=== PATIENT | female | born 1995 | race Caucasian/White ===

== ENCOUNTER 2016-09-08 01:45 | Inpatient (IN) | payer MEDICAID ==
--- NOTE | 2016-09-08 01:53 | OBADHP ---
Datetime: 08/16/2016 15:58 Presentation-Admit: Vertex FHR - Baseline A Provider: 130 Membranes, Provider: Intact Contraction Comments Provider: occasional Gestation - Est Wks by US: 35.0 NICHD Variability Prov Fetus A: Moderate 6-25bpm NICHD Accel Fetus A IP Provider: 15X15 FHR Category Provider Fetus A: Category I NICHD Decel Fetus A IP Provider: None Dilatation, Provider: 0 Effacement, Provider: 0 Station, Provider: -3 Datetime: 08/15/2016 20:06 Admit Comment, IP Provider: at 35+weeks came with c/o pt slipped from the stair at 6.20 pm and fell and hit her belly on right side. pt not feeling the baby moving that time, no vb, lof, no pain. obhx primi pmh denies med pnv all nkda osh den soch denies ve closed a/p at 35=weeks s/p fall admit for observation ivf labs ob sono cont cornelio and efm repeat labs in am cont obervation Pelvic Type - PN: Adequate Extremities - PN: Normal Abdomen - PN: Normal Back - PN: Normal Breast - PN: Normal Lungs - PN: Normal Heart - PN: Normal Thyroid - PN: Normal Neurologic - PN: Normal HEENT - PN: Normal General - PN: Normal Comments, ACOG Physical Exam: gravid,non tender ve closed no bruises IP Hx Assessment: The History has been Reviewed and is Current Vital Signs Provider: Reviewed; Within Normal Limits IP Chief Complaint: Trauma/Fall Genitourinary Exam: Normal DTRs - PN: Normal EGA AdmitDate IP: 35.6 IP Adm Impression: , intrauterine IP Admit Plan: Observation/Evaluation
[2016-09-08 02:32] VITALS: BMI 22.8
[2016-09-08] MEDS ORDERED: Lactated Ringer's 1,000 ML IV SCH (02:45)
--- NOTE | 2016-09-08 02:59 | OBHP ---
Datetime: 09/08/2016 02:45 IP Adm Impression: Term, intrauterine ; No Active Labor; Ruptured Membranes IP Adm Impression Other: Anemia; GBS unkown IP Admit Plan: Admit to unit; Initiate labor augmentation protocol Admit Comment, IP Provider: 21 yo LMO unsure, ESSENCE 09/13/16, EGA 39w 2d by sono 04/26/16 at 20 w eeks, c/o SROM 0100 hours and onset of contractions 0200 hours; pain scale now 7/10. (+) AFM; denies VB. care: 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 Denies STIs PMH: denies PSH: denies NKDA Meds: PNV and iron - each, QD Soc Hx: denies tobacco, illicit drug or EtOH use. Lives by herself. FOB involved; together. 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 Father alive 59 - hx not known. P.E.: as above. WD in pain with contractions/ crying. Awake, alert, oriented to time, person and p lace. Pleasant and cooperative. Mother present Assessment: 21 yo 39w 2d, PROM; latent phase of labor. Category 1 tracing. GBS unknown. Patient co unseled on pain management; will consider. Clinically stable. Plan: 1) Admit 2) NPO 3) IVFs 4) Admission and linited labs 5) Continuous EFM 6) Penicillin 7) Pitocin, as needed 8) Anesthesia consult 9) Anticipate vaginal delivery Pelvic Type - PN: Adequate Extremities - PN: Normal Abdomen - PN: Normal Back - PN: Normal Breast - PN: Not Done Lungs - PN: Normal Heart - PN: Normal Thyroid - PN: Not Done Neurologic - PN: Normal HEENT - PN: Normal General - PN: Normal Weight - Estimated: 3632 Presentation-Admit: Vertex FHR - Baseline A Provider: 135 Amniotic Fluid Color, Provider: Clear Membranes, Provider: Ruptured Contraction Comments Provider: 1-4 Comments, ACOG Physical Exam: Skin: warm, dry intact HEENT: full ROM Lungs: CTA bilaterally Cardiac: RRR, normal S1, S2 Abdomen: Gravid. Firm with contractions. Fundal height 39 cm : perineum wet Extremities: no calf tenderness, cyanosis or edema All other systems reviewed and are negative Gestation - Est Wks by US: 39w 2d Pool Provider: Positive EGA AdmitDate IP: 39.2 Vital Signs Provider: Reviewed; Within Normal Limits IP Indication for Induction: Not Applicable IP Chief Complaint: Uterine contractions; Suspected ruptured membranes FHR Category Provider Fetus A: Category I NICHD Decel Fetus A IP Provider: None Dilatation, Provider: 2 Effacement, Provider: 60 Station, Provider: 0 Genitourinary Exam: Normal DTRs - PN: Not Done Datetime: 08/16/2016 15:58 NICHD Variability Prov Fetus A: Moderate 6-25bpm NICHD Accel Fetus A IP Provider: 15X15
[2016-09-08] MEDS ORDERED: Penicillin G 5 Million Unit Vial IVPB ONE (03:15)
[2016-09-08 03:39] LABS: BASO % 0.4 % (0.0-2.0); EOS # 0.1 K/uL (0.0-0.7); EOS % 0.8 % (0.0-4.0); HEMATOCRIT 36.4 % (34.0-47.0); LYMPH % 17.8 % (20.0-40.0); MEAN CELL VOLUME 72.6 fL (81.0-99.0); MEAN CORPUSCULAR HEMOGLOBIN 22.4 pg (27.0-31.0); MEAN CORPUSCULAR HGB CONC 30.9 g/dL (33.0-37.0); MEAN PLATELET VOLUME 12.9 fL (7.2-11.7); MONO # 0.9 K/uL (0.0-0.8); MONO % 7.7 % (0.0-10.0); NRBC % 0.1 % (0.0-2.0); RED CELL DISTRIBUTION WIDTH 18.2 % (11.5-14.5); WHITE BLOOD COUNT 11.3 K/uL (4.8-10.8)
[2016-09-08 03:40] LABS: RBC URINE < 1 /hpf (0-3); URINE BACTERIA RARE (<OCC); URINE BILIRUBIN NEGATIVE (NEGATIVE); URINE BLOOD NEGATIVE (NEGATIVE); URINE COLOR Yellow (YELLOW); URINE GLUCOSE (UA) NORMAL (Normal); URINE KETONE NEGATIVE (NEGATIVE); URINE LEUKOCYTE ESTERASE NEG Leu/uL (Negative); URINE PROTEIN NEGATIVE (NEGATIVE); URINE UROBILINOGEN NORMAL mg/dL (0.2-1.0); WBC URINE 1 /hpf (0-5)
[2016-09-08 03:48] LABS: CHLORIDE 102 mmol/L (98-107); POTASSIUM 3.7 mmol/L (3.6-5.2); SODIUM 137 mmol/L (132-148)
[2016-09-08 03:50] LABS: BILIRUBIN,TOTAL 0.3 mg/dL (0.2-1.3); CARBON DIOXIDE 21 mmol/L (22-30); GFR AFRICAN-AMERICAN > 60
[2016-09-08 03:51] LABS: ALB/GLOB RATIO 0.9 (1.0-2.1); ALKALINE PHOSPHATASE 156 U/L (38-126); ALT/SGPT 25 U/L (9-52); AST/SGOT 25 U/L (14-36); BLOOD UREA NITROGEN 9 mg/dL (7-17); CALCIUM 9.4 mg/dl (8.6-10.4); GLUCOSE,RANDOM 89 mg/dL (65-105)
[2016-09-08] MEDS ORDERED: Bupivacaine 0.125%/FentaNYL 200 ML EPI ONE (04:53)
[2016-09-08] MEDS ORDERED: Bupivacaine HCl 0.25% PF (10 ml) Inj ONE (04:54)
[2016-09-08] MEDS ORDERED: Oxytocin 30 UNIT 500 ML IV PRN (06:00)
[2016-09-08] MEDS ORDERED: Oxytocin 30 UNIT 500 ML IV ONE (06:13)
--- NOTE | 2016-09-08 07:50 | OBPN ---
Datetime: 09/08/2016 07:42 IP Progress Impression: Reassuring heart rate IP Informed Consent Obtain: Vaginal Delivery; Risks, Benefits and Alternatives Discussed IP Progress Plan: Continue present management; Augmentation; Anticipate Vaginal Delivery FHR - Baseline A Provider: 140 Gestation - Est Wks by US: 39.0 IP Progress Note Comment: Assumed care of this patient admittrd with PROM at 39 weeks Gestation on P itocin, on Penicillin for GBS prophylaxis, and has Epidural. Reassuring Status. Anticipate NSV D. Vital Signs Provider: Reviewed; Within Normal Limits FHR Category Provider Fetus A: Category I NICHD Variability Prov Fetus A: Moderate 6-25bpm NICHD Decel Fetus A IP Provider: None Datetime: 09/08/2016 02:45 Pool Provider: Positive Membranes, Provider: Ruptured Amniotic Fluid Color, Provider: Clear Contraction Comments Provider: 1-4 Weight - Estimated: 3632 Presentation-Admit: Vertex Dilatation, Provider: 2 Effacement, Provider: 60 Station, Provider: 0
[2016-09-08] MEDS ORDERED: Lidocaine 2% Inj (20ml) ONE (13:09)
[2016-09-08] MEDS ORDERED: Oxytocin 20 units in LR 2,000 ML IV ONE (13:09)
--- NOTE | 2016-09-08 16:44 | OBPN ---
Datetime: 09/08/2016 16:40 IP Progress Impression: Normal progression of labor; Reassuring heart rate IP Informed Consent Obtain: Vaginal Delivery; Risks, Benefits and Alternatives Discussed IP Procedures: Sterile Vag Exam IP Progress Plan: Continue present management; Augmentation; Anticipate Vaginal Delivery Membranes, Provider: Ruptured Contraction Comments Provider: Q 2min. FHR - Baseline A Provider: 125 Gestation - Est Wks by US: 39.0 Weight - Estimated: 3200 Presentation-Admit: Vertex IP Progress Note Comment: Second Stage of Labor. Reassuring Status. Anticipate . Vital Signs Provider: Reviewed; Within Normal Limits FHR Category Provider Fetus A: Category I NICHD Variability Prov Fetus A: Moderate 6-25bpm Dilatation, Provider: 10 Effacement, Provider: 100 Station, Provider: 2 NICHD Decel Fetus A IP Provider: None
--- NOTE | 2016-09-08 17:47 | OBDS ---
DELIVERY PERSONNEL Delivery Doctor: Eleno Parsons MD Supervisor Policy Change Clerks: Ramónjimbo Karlee RN MATERNAL INFORMATION Delivery Anesthesia: Epidural Provider Comments: Vaccuum-Assisted Vaginal Delivery with delivery of a Viable boy. 's /9. LABOR SUMMARY EDC: 09/13/2016 00:00 No. Babies in Womb: 1 Attempted: No Labor Anesthesia: Epidural LABOR INFORMATION Reason for Induction: Not Applicable Onset of Labor: 09/08/2016 02:00 Complete Dilatation: 09/08/2016 15:15 Oxytocin: Augmentation Group B Beta Strep: Done, Result Unknown Antibiotics # of Doses: 4 Antibiotics Time of Last Dose: 1432 Steroids Given: None Reason Steroids Not Administered: Not Applicable MEMBRANES Membranes Rupture Method: Spontaneous Rupture of Membranes: 09/08/2016 01:00 Length of Rupture (hrs): 16.32 Amniotic Fluid Color: Clear Amniotic Fluid Amount: Large Amniotic Fluid Odor: Normal STAGES OF LABOR Stage 1 hrs: 13 Stage 1 min: 15 Stage 2 hrs: 2 Stage 2 min: 4 Stage 3 hrs: 0 Stage 3 min: 7 Total Time in Labor hrs: 15 Total Time in Labor min: 26 VAGINAL DELIVERY Episiotomy: Right Mediolateral Laceration Extension: N/A Laceration Type: None Laceration Repair: Yes Laceration Repair Note: Right medio-lateral Episiotomy repaired with 2-0 chromic catgut. Initial Vag Sponge Count: 10 Initial Vag Sharps Count: 0 BABY A INFORMATION Infant Delivery Date/Time: 09/08/2016 17:19 Method of Delivery: Vaginal Born in Route : No : N/A Forceps: N/A Vacuum Extraction: Successful ASSISTED DELIVERY BABY A Indication for Assisted Delivery: ineffective pushing effort Catheter Prior to Procedure: Yes Vacuum Number of Pulls: 3 Vacuum Number of PopOffs: 0 Vacuum Maximum Pressure Obtained: 40 Reduce Pressure btwn Ctx: Yes Vacuum Maintainer Central Office: [facility] Total Time Vacuum Applied: 30 secs SHOULDER DYSTOCIA BABY A Delivery Date/Time: 09/08/2016 17:19 PRESENTATION/POSITION BABY A Presentation: Cephalic Cephalic Presentation: Vertex Vertex Position: Left Occipital Anterior Breech Presentation: N/A PLACENTA INFORMATION BABY A Placenta Delivery Time : 09/08/2016 17:26 Placenta Method of Delivery: Expressed Placenta Status: Delivered SCORES BABY A Heart Rate 1 min: >100 bpm Resp Effort 1 min: Good Cry Reflex Irritability 1 min: Cough or Sneeze or Pulls Away Muscle Tone 1 min: Active Motion Color 1 min: Body [place], Extremities Blue SCORE 1 MIN: 9 Heart Rate 5 min: >100 bpm Resp Effort 5 min: Good Cry Reflex Irritability 5 min: Cough or Sneeze or Pulls Away Muscle Tone 5 min: Active Motion Color 5 min: Body [place], Extremities Blue SCORE 5 MIN: 9 INFANT INFORMATION BABY A Gestational Age at Delivery: 39.2 Gestational Status: Term Infant Outcome : Liveborn Infant Condition : Stable Sex: Male IDENTIFICATION/MEDS BABY A ID Band Number: [id number] ID Band Location: Left Leg; Left Arm Sensor Number: [id number] Sensor Location : Cord Clamp Vitamin K Given : Aquamephyton 1 mg IM Erythromycin Given: Given Both Eyes WEIGHT/LENGTH BABY A Birthweight (gms): 3215 Weight (lb): 7 Weight (oz): 1 Infant Length Inches: 19.00 Infant Length cms: 48.3 CORD INFORMATION BABY A No. Cord Vessels: 3 Nuchal Cord : N/A Nuchal Cord Other: 0 True Knot: 0 Cord Blood Taken: Yes Suction: Mouth; Nose; Pharynx
[2016-09-08] MEDS ORDERED: Benzocaine/Menthol 20%-0.5% Topical Spray (60 ml) TOP PRN (17:54)
[2016-09-08 18:12] LABS: RAPID PLASMA REAGIN NONREACTIVE (NONREACTIVE)
[2016-09-09 08:37] LABS: HEMATOCRIT 28.8 % (34.0-47.0)
[2016-09-09] MEDS: Multiple Vitamins Tab PO SCH (09:45)
--- NOTE | 2016-09-09 18:43 | OBPPN ---
Datetime: 09/09/2016 11:50 PP Pain Prov: Within normal limits PP Nausea Prov: Denies PP Flatus Prov: Yes PP BM Prov: No PP Breasts Prov: Normal PP Heart Prov: Normal PP Lungs Prov: Normal PP Abdomen/Uterus Prov: Normal PP Lochia Prov: Normal PP Vulva/Perineum Prov: Normal PP CVA Tenderness Prov: Normal PP Extremities Prov: Normal PP C/S Incision Prov: Not Applicable PP Progress Prov: Normal PP Comments Phys Exam Prov: Skin: warm, dry, intact Breasts: no masses, cracked nipples Perineum: episiotomy healing well - no induration or foul odor Extremities: no calf tenderness, cyanosis or edema All other systems reviewed and are negative PP Impression Prov: Normal progression PP Plan Prov: Continue present management PP Progress Note Prov: Patient received in bed, room 455, eating an apple; in good spirits. Repors m ild discomfort in area of episiotomy. Ambulating and voiding without difficulty. primar natanael. P.E.: as above. WD in NAD. awake, alert, oriented to time, person and place. Pleasant and cooperat duc. Her mother present - PPD#1 H/H 03/13.8 Assessment: PPD#1, 21 yo P1, S/P vacuum-assisted vaginal delivery; episiotomy healing well.. Afebr ile, vital signs. Anemia noted - patietn is asymptomatic (denies chest, palpitations, lightheadedness or dizziness); and is otherwise, hemodynamically stable. Patient is clinically stable. Plan: 1) continue present management 2) Anticipate discharge home 09/10/16 Vital Signs Provider PP: Reviewed; Within Normal Limits
[2016-09-10 00:37] VITALS: O2SAT 97
[2016-09-10 08:15] VITALS: BP 91/61; PULSE 62; RESP 18; TEMP 98.2
--- NOTE | 2016-09-10 09:04 | OBDCSUM ---
Datetime: 09/10/2016 09:03 Discharged to, Provider: Home Follow up at, Provider: obgyn clinic Disch Instr Diet: Regular Discharge Instructions, Provider: Routine instructions given Discharge Diagnosis, Provider: Term Delivered Discharge Time: 09/10/2016 09:03 Follow up in weeks, Provider: 6 weeks Disch Activity Restrictions: No exercising; No lifting; No driving; No sexual activity; Nothing in v agina - [place], tampons, douche Discharge Comment, Provider: go to er if you have severe pain, heavy bleeding, fever, pain or rednes s in calf muscels or any other problems Discharge Diagnosis Prov Other: s/p vaginal delivery
--- NOTE | 2016-09-10 09:04 | OBPPN ---
Datetime: 09/10/2016 09:02 PP Pain Prov: Within normal limits PP Nausea Prov: Denies PP Flatus Prov: Yes PP Heart Prov: Normal PP Lungs Prov: Normal PP Abdomen/Uterus Prov: Normal PP Lochia Prov: Normal PP Vulva/Perineum Prov: Normal PP CVA Tenderness Prov: Normal PP Extremities Prov: Normal PP C/S Incision Prov: Not Applicable PP Progress Prov: Normal PP Impression Prov: Normal progression PP Plan Prov: Discharge PP Progress Note Prov: S-patient reports that he rpain is well controlled.denies nausea, vomiting, h eadache, chest pain, shortness of breath, numbness or tingling in hands and feet O-VSS Afebrile Fundus firm and below umbilcius extremities no calf tenderness A/P Patient s/p vaginal delivery PPD 2doing well -discharge today -follow up in clinic in 6 weeks -continue iron daily Vital Signs Provider PP: Reviewed; Within Normal Limits
[2016-09-10] MEDS: Multiple Vitamins Tab PO SCH (10:24)
[2016-09-10] MEDS ORDERED: Influenza Virus Vaccine 45 mcg/0.5 ml Syr IM ONE (11:00)
== END 2016-09-10 13:00 | disposition home or self-care (01) | DRG 372 ==
LOC: C.EROB 01:45 → C.4D 02:42 → C.4M 19:45
PROVIDERS: ADMIT Obstetrics & Gynecology; ATTEND Obstetrics & Gynecology
PROC: 10D07Z6 Extraction of Products of Conception, Vacuum, Via Natural or Artificial Opening (ICD-10-PCS; principal; 2016-09-08)
PROC: 0W8NXZZ Division of Female Perineum, External Approach (ICD-10-PCS; 2016-09-08)
DX: O42.02 Full-term premature rupture of membranes, onset of labor within 24 hours of rupture (principal); O99.02 Anemia complicating childbirth; O75.89 Other specified complications of labor and delivery; O66.5 Attempted application of vacuum extractor and forceps; Z3A.39 39 weeks gestation of pregnancy; Z37.0 Single live birth

== ENCOUNTER 2016-09-24 13:18 | Emergency (ER) | payer MEDICAID ==
[2016-09-24 13:18] VITALS: BMI 22.8
[2016-09-24 14:33] VITALS: BP 119/82; PULSE 72; RESP 18; TEMP 98.2; O2SAT 100
--- NOTE | 2016-09-24 15:10 | C.PDOC ---
History Of Present Illness 21 year old female presents to the ED with complaints of a possible mouse bite to her left elbow. Patient states she was sleeping next to her when she noticed a mouse near her left elbow that may have bit her. She was concerned that she may need an injection or cannot breast feed due to the possible. She has no other complaints at this time. Time Seen by Provider: 09/24/16 14:18 Chief Complaint (Nursing): Abnormal Skin Integrity History Per: Patient History/Exam Limitations: no limitations Onset/Duration Of Symptoms: Days Severity: None Pain Scale Rating Of: 0 Past Medical History Reviewed: Historical Data, Nursing Documentation, Vital Signs Vital Signs: Last Vital Signs Temp 98.2 F 09/24/16 14:29 Pulse 72 09/24/16 14:29 Resp 18 09/24/16 14:29 BP 119/82 09/24/16 14:29 Pulse Ox 100 09/24/16 15:14 - Medical History PMH: No Chronic Diseases - [facility] Procedures DIVISION OF FEMALE PERINEUM, EXTERNAL APPROACH (09/08/16) EXTRACTION OF PRODUCTS OF CONCEPTION, VACUUM, VIA OPENING (09/08/16) Family History: States: Unknown Family Hx - Social History Hx Tobacco Use: No Hx Alcohol Use: No Hx Substance Use: No - Immunization History Hx Influenza Vaccination: No Review Of Systems Except As Marked, All Systems Reviewed And Found Negative. Constitutional: Negative for: Fever, Chills Skin: Negative for: Rash Physical Exam - Physical Exam Appears: Non-toxic, No Acute Distress Skin: Normal Color, Warm, Dry, No Other (No bite seen on the left elbow) Head: Atraumatic, Normacephalic Eye(s): bilateral: Normal Inspection Oral Mucosa: Moist Chest: Symmetrical Respiratory: No Accessory Muscle Use Extremity: Normal ROM, No Deformity Neurological/Psych: Oriented x3, Normal Speech, Normal Cognition ED Course And Treatment O2 Sat by Pulse Oximetry: 100 Medical Decision Making Medical Decision Making: The log brander was instructed that mice do not carry rabies and there is no bite su seen. Treatment not initiated. Disposition - Disposition Referrals: [facility] [Outside] Disposition: HOME/ ROUTINE Disposition Time: 14:55 Condition: GOOD Additional Instructions: Follow up with the medical doctor within 1-2 days. return if worsened. Instructions: Animal Bite (ED) - Clinical Impression Clinical Impression: Normal exam - PA / DOCUMENT CLERK / Resident Statement MD/DO has reviewed & agrees with the documentation as recorded. - Scribe Statement The provider has reviewed the documentation as recorded by the Scribe Karishma Lea. All medical record entries made by the Scribe were at my direction and personally dictated by me. I have reviewed the chart and agree that the record accurately reflects my personal performance of the history, physical exam, medical decision making, and the department course for this patient. I have also personally directed, reviewed, and agree with the discharge instructions and disposition.
== END 2016-09-24 15:03 | disposition home or self-care (01) ==
LOC: C.ER 13:18
DX: Z03.89 Encounter for observation for other suspected diseases and conditions ruled out (principal)

== ENCOUNTER 2018-05-10 20:06 | Emergency (ER) | payer MEDICAID ==
[2018-05-10 20:06] VITALS: BMI 22.8
[2018-05-10 20:30] VITALS: BP 121/66; PULSE 71; RESP 16; TEMP 98.1; O2SAT 100
[2018-05-10 20:58] LABS: HCG,QUALITATIVE URINE NEGATIVE (NEGATIVE)
[2018-05-10 21:01] LABS: SQUAMOUS EPITHIAL 1 /hpf (0-5); URINE BACTERIA RARE (<OCC); URINE BILIRUBIN NEGATIVE (NEGATIVE); URINE BLOOD NEGATIVE (NEGATIVE); URINE CLARITY Clear (Clear); URINE COLOR Yellow (YELLOW); URINE GLUCOSE (UA) NORMAL (Normal); URINE LEUKOCYTE ESTERASE 1+ Leu/uL (Negative); URINE PROTEIN NEGATIVE (NEGATIVE); URINE UROBILINOGEN NORMAL mg/dL (0.2-1.0)
--- NOTE | 2018-05-10 21:08 | C.PDOC ---
History Of Present Illness 23-year-old female presents to the ED complaining of suprapubic pain for 1 week. Patient also reports dysuria on and off, and notes her urine has been foul smelling. Otherwise she denies any vaginal bleeding, discharge, nausea, vomiting, hematuria, fever, or other associated symptoms. Today patient noticed the pain began radiating to the left flank, prompting this ED visit. She reports family history of kidney stones. Time Seen by Provider: 05/10/18 20:27 Chief Complaint (Nursing): Female Genitourinary History Per: Patient History/Exam Limitations: no limitations Onset/Duration Of Symptoms: Days (x7) Current Symptoms Are (Timing): Still Present Quality Of Discomfort: "Pain" Associated Symptoms: Urinary Symptoms Abnormal Vaginal Bleeding: No Past Medical History Reviewed: Historical Data, Nursing Documentation, Vital Signs Vital Signs: Last Vital Signs Temp 98.1 F 05/10/18 20:22 Pulse 71 05/10/18 20:22 Resp 16 05/10/18 20:22 BP 121/66 05/10/18 20:22 Pulse Ox 100 05/10/18 20:22 - Medical History PMH: Anemia Surgical History: No Surg Hx - [facility] Procedures DIVISION OF FEMALE PERINEUM, EXTERNAL APPROACH (09/08/16) EXTRACTION OF PRODUCTS OF CONCEPTION, VACUUM, VIA OPENING (09/08/16) Family History: States: Unknown Family Hx - Social History Hx Tobacco Use: No Hx Alcohol Use: No Hx Substance Use: No - Immunization History Hx Influenza Vaccination: No Review Of Systems Except As Marked, All Systems Reviewed And Found Negative. Constitutional: Negative for: Fever, Chills Gastrointestinal: Positive for: Abdominal Pain, Other (Left flank pain). Negative for: Nausea, Vomiting, Diarrhea Genitourinary: Positive for: Dysuria. Negative for: Frequency, Incontinence, Hematuria, Vaginal Bleeding Musculoskeletal: Negative for: Back Pain Physical Exam - Physical Exam Appears: Well, Non-toxic, No Acute Distress Skin: Warm, Dry, No Rash Head: Atraumatic, Normacephalic Eye(s): bilateral: Normal Inspection Neck: Normal ROM Chest: Symmetrical Respiratory: No Accessory Muscle Use, Other (speaking in full sentences) Gastrointestinal/Abdominal: Soft, No Tenderness, No Guarding Back: Normal Inspection, No CVA Tenderness, No Vertebral Tenderness, No Paraspinal Tenderness Extremity: Bilateral: Atraumatic, Normal Color And Temperature, Normal ROM Neurological/Psych: Oriented x3, Normal Speech Gait: Steady ED Course And Treatment - Laboratory Results Urine POC: Negative O2 Sat by Pulse Oximetry: 100 (on room air) Pulse Ox Interpretation: Normal Medical Decision Making Medical Decision Making: Impression: 23-year-old with suprapubic pain, dysuria, fever Initial Plan: * UA and urine culture sent Labs reviewed, UA positive for leuks and WBC. Patient given initial dose of Bactrim x 1 tab PO in the ED. On re-examination, patient is resting comfortably in no acute distress. Patient reports improvement of symptoms. Patient feels comfortable going home and will be discharged with prescription for Bactrim. Patient given follow up instructions. Instructed to return to ER if symptoms worsen or new symptoms arise. Disposition Counseled Patient/Family Regarding: Diagnosis, Need For Followup, Rx Given - Disposition Referrals: [facility] [Outside] [facility] [Outside] Disposition: HOME/ ROUTINE Disposition Time: 21:15 Condition: STABLE Additional Instructions: Take antibiotic twice daily and be sure to finish taking all of antibiotic. Drink lots of water. Kathryn antibiticos dos veces al da y asegrese de terminar de bro todos los antibiticos. Beber saroj agua. Prescriptions: Sulfamethoxazole/Trimethoprim [Bactrim DS 800 mg-160 mg] 1 tab PO BID #14 tab Instructions: Urinary Tract Infection, Adult (DC) Forms: [facility] (Mongolian) Print Language: FAROESE - POA Present On Arrival: None - Clinical Impression Clinical Impression: UTI (urinary tract infection) - PA / ROUTING MACHINE OPERATOR / Resident Statement MD/DO has reviewed & agrees with the documentation as recorded. - Scribe Statement The provider has reviewed the documentation as recorded by the Scribe (Astrid Hernández) All medical record entries made by the Scribe were at my direction and personally dictated by me. I have reviewed the chart and agree that the record accurately reflects my personal performance of the history, physical exam, medical decision making, and the department course for this patient. I have also personally directed, reviewed, and agree with the discharge instructions and disposition.
[2018-05-10] MEDS ORDERED: Tmp-Smz 800 mg-160 mg DS Tab PO STA (21:11)
[2018-05-10] MEDS ORDERED: Tmp-Smz 800 mg-160 mg DS Tab ONE (21:16)
== END 2018-05-10 21:18 | disposition home or self-care (01) ==
LOC: C.ER 20:06
DX: N39.0 Urinary tract infection, site not specified (principal)